=== PATIENT | male | born 1980 | race Caucasian/White ===

== ENCOUNTER 2020-12-01 11:55 | Emergency (ER) | payer OTHER ==
[~2020-12-01] VITALS: Ht 188 cm; Wt 86.2 kg
[2020-12-01] MEDS ORDERED: CELE100C PO (13:40)
[2020-12-01] MEDS ORDERED: PANT40TA29 PO (13:40)
[2020-12-01] MEDS ORDERED: TIZA4CAP PO (13:40)
[2020-12-01] MEDS ORDERED: GI COCKTAIL 50ML BTL(HYOSCYAMINE/MAALOX/LIDOCAINE VISCOUS)(1:3:1) PO ONE (15:50)
--- NOTE | 2020-12-01 16:08 | REP ---
INDICATION: CHEST PAIN COMPARISON: None. TECHNIQUE: PA/Lateral FINDINGS: Lungs: Clear, no infiltrate. Heart: Normal in size. Mediastinum: Mediastinal silhouette unremarkable. Pleural angles: Unremarkable.. Bones and soft tissues: Unremarkable. IMPRESSION: No acute pulmonary disease. <Electronically signed by Hair Rossi > 12/01/20 [id number]
[2020-12-01 16:34] LABS: BASO % 0.6 % (0.0-1.0); EOS # 0.1 10^3/uL (0.0-0.5); EOS % 1.5 % (0.0-3.0); HEMATOCRIT 44.3 % (42.0-52.0); HEMOGLOBIN 14.7 g/dl (13.5-17.5); LYMPH # 1.9 10^3/uL (1.5-5.0); LYMPH % 29.1 % (24.0-44.0); MEAN CORPUSCULAR HEMOGLOBIN 30.1 pg (27.0-33.0); MEAN CORPUSCULAR HGB CONC 33.2 g/dl (32.0-36.5); MEAN CORPUSCULAR VOLUME 90.6 fl (80.0-96.0); MONO # 0.4 10^3/uL (0.0-0.8); NEUTROPHILS # 4.1 10^3/uL (1.5-8.5); NEUTROPHILS % 62.6 % (36.0-66.0); PLATELET COUNT, AUTOMATED 180 10^3/uL (150-450); RED BLOOD COUNT 4.89 10^6/uL (4.30-6.10); WHITE BLOOD COUNT 6.5 10^3/uL (4.0-10.0)
[2020-12-01 17:07] LABS: ALBUMIN 4.2 GM/DL (3.2-5.2); ALT/SGPT 45 U/L (12-78); BILIRUBIN,DIRECT 0.2 MG/DL (0.0-0.2); BILIRUBIN,TOTAL 0.8 MG/DL (0.2-1.0); BLOOD UREA NITROGEN 11 MG/DL (7-18); CALCIUM LEVEL 9.5 MG/DL (8.5-10.1); CARBON DIOXIDE LEVEL 28 MEQ/L (21-32); CHLORIDE LEVEL 107 MEQ/L (98-107); CK-MB VALUE MASS 2.9 NG/ML (<3.6); CPK CREATINE PHOSPHOKINASE 218 U/L (39-308); CREATININE FOR GFR 0.76 MG/DL (0.70-1.30); GLOMERULAR FILTRATION RATE > 60.0 (>60); GLUCOSE, FASTING 87 MG/DL (70-100); LIPASE 121 U/L (73-393); MB/CK RELATIVE INDEX 1.33 (< OR =4); POTASSIUM SERUM 4.2 MEQ/L (3.5-5.1); SODIUM LEVEL 141 MEQ/L (136-145); TOTAL PROTEIN 7.3 GM/DL (6.4-8.2); TROPONIN I < 0.02 NG/ML (< 0.10)
[2020-12-01] MEDS ORDERED: OMEP40CA97 PO (17:12)
[2020-12-01 17:31] VITALS: BP 129/81
--- NOTE | 2020-12-02 02:44 | ECGEPIP ---
[facility] - ED Test Date: 2020-12-01 Pat Name: ZABRINA SMITH Department: Room: - Gender: Male [employer]: : 1980 Requested By: SELIN Arreola Order Number: [id number] Reading MD: Nilson Pérez Measurements Intervals [place] Rate: 50 P: 64 WV: 172 QRS: 64 QRSD: 84 T: 32 QT: 416 QTc: 379 Interpretive Statements Sinus bradycardia NO PRIORS FOR COMPARISON Electronically Signed on 12-02-2020 2:43:47 EDT by Nilson Pérez
== END 2020-12-01 17:36 | disposition home or self-care (01) ==
LOC: M ED 11:55
DX: R07.89 Other chest pain (principal); K40.90 Unilateral inguinal hernia, without obstruction or gangrene, not specified as recurrent; R00.1 Bradycardia, unspecified; K21.9 Gastro-esophageal reflux disease without esophagitis; R53.83 Other fatigue; R53.1 Weakness; J02.9 Acute pharyngitis, unspecified; F41.9 Anxiety disorder, unspecified; Z79.899 Other long term (current) drug therapy

== ENCOUNTER → 2021-01-27 | Outpatient (CLI) | payer OTHER ==
[~2021-01-27] MED LIST: CELE100C PO; OMEP40CA97 PO; PANT40TA29 PO; TIZA4CAP PO
--- NOTE | 2021-01-27 16:56 | REP ---
INDICATION: BI INGUINAL HERNIA W/O OBST OR GANGRENE COMPARISON: None. TECHNIQUE: B-mode ultrasound examination using linear high-frequency transducer. FINDINGS: There is no evidence for inguinal hernia bilaterally. Small reducible fat containing femoral hernias are suggested. IMPRESSION: Small fat containing femoral hernias suggested bilaterally. <Electronically signed by Radames Werner > 01/27/21 [id number]
== END ==
LOC: M RAD 13:27
PROVIDERS: ATTEND Surgery
DX: K40.20 Bilateral inguinal hernia, without obstruction or gangrene, not specified as recurrent (principal)

== ENCOUNTER 2021-05-04 10:35 | Emergency (ER) | payer OTHER ==
[~2021-05-04] VITALS: Ht 188 cm; Wt 83.9 kg
[~2021-05-04 10:35] MED LIST changes: +OMEP40CA4 PO; -OMEP40CA97 PO
--- NOTE | 2021-05-04 13:49 | REP ---
INDICATION: bilat fem hernias, pain alot worse. COMPARISON: 01/27/2021. TECHNIQUE: Real-time sonographic evaluation of inguinal regions performed at rest and with Valsalva maneuver. FINDINGS: Once again there are bilateral femoral hernias, containing a small amount of fat but no bowel. Both hernias are reducible. There is no inguinal hernia bilaterally. IMPRESSION: Stable small reducible bilateral femoral hernias containing fat. <Electronically signed by Hair Rossi > 05/04/21 [id number]
[2021-05-04 14:12] VITALS: BP 129/82
== END 2021-05-04 14:13 | disposition home or self-care (01) ==
LOC: M ED 10:35
DX: K41.20 Bilateral femoral hernia, without obstruction or gangrene, not specified as recurrent (principal)

== ENCOUNTER 2021-09-11 09:00 | Day surgery (SDC) | payer OTHER ==
[~2021-09-11] VITALS: Ht 188 cm; Wt 86.1 kg
[~2021-09-11 09:00] MED LIST changes: +ACETAMINOPHEN 1000MG 100ML IV BTL (OFIRMEV) (J0131 PER 10MG) As Ordered ONE; +KETOROLAC 60MG 2ML VIAL As Ordered ONE; +LIDOCAINE 2% 100MG/5ML SDV (FOR ANES.) As Ordered ONE; +LR 1,000 ML IV ONE; +MIDAZOLAM INJ 2MG/2ML VIAL (J2250 PER 1MG) As Ordered ONE; +ONDANSETRON 4MG/2ML VIAL As Ordered ONE; +ROCURONIUM BROMIDE 50 MG/5 ML VIAL As Ordered ONE; +SUGAMMADEX SODIUM 500 MG/5 ML VIAL (BRIDION) As Ordered ONE; +ceFAZolin SOD 2 GM in IV 1 EA IV ONE; +dexameTHASONE 4 MG/ML 1ML VIAL (J1100 PER 1MG) As Ordered ONE; +fentaNYL 100 MCG/2 ML INJECTION (J3010) As Ordered ONE; +propofoL 200 MG/20 ML VIAL As Ordered ONE
[2021-09-11] MEDS ORDERED: ceFAZolin SOD 2 GM in IV 1 EA IV ONE (09:30)
[2021-09-11] MEDS ORDERED: BUPIVACAINE/EPIN 0.5% 30 ML VIAL As Ordered ONE (11:14)
[2021-09-11] MEDS ORDERED: GLYCOPYRROLATE INJ 0.2 MG/ML 2 ML VIAL As Ordered ONE (12:07)
[2021-09-11] MEDS ORDERED: ONDANSETRON 4MG/2ML VIAL IV PRN (13:25)
[2021-09-11] MEDS ORDERED: LR 1,000 ML IV SCH (13:25)
[2021-09-11] MEDS ORDERED: fentaNYL 100 MCG/2 ML INJECTION (J3010) IV PRN (13:25)
[2021-09-11] MEDS ORDERED: oxyCODONE 5MG TAB PO PRN (13:25)
[2021-09-11] MEDS ORDERED: NORCO, ANEXSIA 5/325MG TABLET (HYDROcodone/ACETAMINOPHEN) PO PRN (13:30)
[2021-09-11 15:35] VITALS: BP 138/86
== END 2021-09-11 16:12 | disposition home or self-care (01) ==
LOC: M SDC 09:00
PROVIDERS: ATTEND Surgery
DX: K41.20 Bilateral femoral hernia, without obstruction or gangrene, not specified as recurrent (principal); F43.10 Post-traumatic stress disorder, unspecified; F41.9 Anxiety disorder, unspecified; F32.9 Major depressive disorder, single episode, unspecified; K21.9 Gastro-esophageal reflux disease without esophagitis; Z79.899 Other long term (current) drug therapy; Z91.040 Latex allergy status
CPT/HCPCS: 49650; C1781; J0131; J0690; J1100; J1885; J2250; J2405; J3010; S2900

== ENCOUNTER → 2022-02-05 | Outpatient (CLI) | payer OTHER ==
[~2022-02-05] MED LIST changes: -ACETAMINOPHEN 1000MG 100ML IV BTL (OFIRMEV) (J0131 PER 10MG) As Ordered ONE; -KETOROLAC 60MG 2ML VIAL As Ordered ONE; -LIDOCAINE 2% 100MG/5ML SDV (FOR ANES.) As Ordered ONE; -LR 1,000 ML IV ONE; -MIDAZOLAM INJ 2MG/2ML VIAL (J2250 PER 1MG) As Ordered ONE; -ONDANSETRON 4MG/2ML VIAL As Ordered ONE; -ROCURONIUM BROMIDE 50 MG/5 ML VIAL As Ordered ONE; -SUGAMMADEX SODIUM 500 MG/5 ML VIAL (BRIDION) As Ordered ONE; -ceFAZolin SOD 2 GM in IV 1 EA IV ONE; -dexameTHASONE 4 MG/ML 1ML VIAL (J1100 PER 1MG) As Ordered ONE; -fentaNYL 100 MCG/2 ML INJECTION (J3010) As Ordered ONE; -propofoL 200 MG/20 ML VIAL As Ordered ONE
== END ==
LOC: M SOG 08:19
PROVIDERS: ATTEND Orthopaedic Surgery
DX: M51.36 Other intervertebral disc degeneration, lumbar region (principal); M51.37 Other intervertebral disc degeneration, lumbosacral region